=== PATIENT | male | born 1950 | race Caucasian/White ===

== ENCOUNTER → 2024-07-06 08:33 | Outpatient (REF) | payer MEDICARE, OTHER, SELFPAY ==
[2024-07-06 09:04] LABS: % Basophils 0.4 % (0-2); % Eosinophils 0.8 % (0-6); % Immature Granulocytes 0.4 % (0-0.5); % Lymphocytes 22.5 % (20.5-51.1); % Monocytes 9.6 % (1.7-9.3); % Neutrophils 66.3 % (42.2-75.2); Absolute Eosinophils 0.1 10^3/uL (0-0.7); Absolute Lymphocytes 2.4 10^3/uL (1.2-3.4); Absolute Neutrophils 7.1 10^3/uL (1.4-6.5); Hematocrit 44.9 % (39.0-52.0); Hemoglobin 15.9 g/dL (13.0-18.0); Mean Corp Hgb Conc. 35.4 g/dL (33.0-37.0); Mean Corpuscular Hgb 31.4 pg (27.0-31.0); Mean Corpuscular Volume 88.6 fL (80.0-94.0); Mean Platelet Volume 9.8 fL (7.4-10.4); Nucleated Red Blood Cells % 0 % (-); Platelet Count 233 10^3/uL (130-400); Red Blood Cell Count 5.07 10^6/uL (4.70-6.10); Red Cell Dist. Width 12.8 % (11.5-14.5); White Blood Cell Count 10.7 10^3/uL (4.8-10.8)
[2024-07-06 09:15] LABS: INR 2.98; PT 31.3 Sec (11.4-14.6)
[2024-07-06 09:23] LABS: ALT (SGPT) 18 U/L (0-50); AST (SGOT) 21 U/L (17-59); Albumin 4.1 g/dl (3.5-5.0); Alkaline Phosphatase 47 U/L (38-126); Blood Urea Nitrogen 29 mg/dl (9-20); Calcium 9.5 mg/dl (8.4-10.2); Carbon Dioxide 26 mmol/L (22-30); Chloride 104 mmol/L (98-107); Glucose 111 mg/dl (70-99); Magnesium 1.8 mg/dl (1.6-2.3); Potassium 4.3 mmol/L (3.5-5.1); Sodium 139 mmol/L (135-145); Total Bilirubin 0.9 mg/dl (0.2-1.3); eGFR > 60.00
== END ==
LOC: SDSPAT 08:33
PROVIDERS: ATTENDING PHYSICIAN Internal Medicine Cardiovascular Disease; FAMILY PHYSICIAN Family Medicine; OTHER PHYSICIAN Internal Medicine
DX: I48.91 Unspecified atrial fibrillation (principal)
CPT/HCPCS: 36415; 75572; 80053; 83735; 85025; 85610; 86850; 86900; 86901; 93005; Q9967

== ENCOUNTER 2024-07-18 10:28 | Day surgery (SDC) | payer MEDICARE, OTHER, SELFPAY ==
[2024-07-06 08:43] VITALS: BMI 32.7
--- NOTE | 2024-07-06 09:18 | HPS.HSE ---
Family Physician
-
Family Physician: NO INTERVIEW UNKNOWN
Chief Complaint
-
Persistent atrial fibrillation.
History of Present Illness
The patient is a 73-year-old male presenting today for persistent atrial fibrillation. The patient reports a history of periodic palpitations and increased fatigue likely secondary to this diagnosis. He is on current pharmacological
therapy with Metoprolol Succinate. He does report compliance with Warfarin for oral anticoagulation due to a CHADS-VASc of 2. He notes that his current symptoms associated with his atrial fibrillation greatly interfere with his activities of daily
living and overall impact his quality of life. He is interested in pursuing with pulmonary vein isolation for further arrhythmia management. He denies any current complaints today such as chest pain, shortness of breath at rest, nausea, vomiting,
diarrhea, dizziness, cough, sore throat, or fever.
Medical History
Past Medical History
Past Medical History: Reports Other
Additional Past Medical History:
1. Persistent atrial fibrillation, pharmacological therapy with Metoprolol Succinate and oral anticoagulation with Warfarin.
2. Hypertension.
3. PVCs.
4. Obstructive sleep apnea, compliant with CPAP.
5. Colon polyps.
6. Colitis, on Azathioprine.
7. BPH.
8. Obesity, BMI 32.7.
Past Surgical History: Reports Other
Additional Past Surgical History:
1. Cholecystectomy.
2. Multiple colonoscopies.
Social History
Tobacco: Non-smoker
Alcohol: Other (Rare alcohol. )
Personal:
Living: Other (He lives with his Emmanuelle in a 2 story home. )
Family History
Family History: Not pertinent
Allergies / Home Medications
Allergy/Medication List:
Home medications:
1. Amlodipine 5 mg p.o. twice a day.
2. Azathioprine 50 mg p.o. daily.
3. Lisinopril-HCTZ 20-25 mg p.o. daily.
4. Metoprolol Succinate 100 mg p.o. twice a day.
5. Warfarin 7.5 mg p.o. every evening.
Allergies: No known allergies.
Review of Systems
-
A 12 point ROS was completed and negative except as noted: Yes
Physical Exam
Vital Signs
Blood pressure 143/92. Heart rate 85. Respirations 18. Pulse ox 98% on room air.
Height 5 feet, 11 inches. Weight 106.3 kg. BMI 32.7.
Physical Exam
General: Well Developed, Well Nourished and No Apparent Distress
HEENT: NormoCephalic, Moist mucous membranes, Atraumatic and PERRLA
Respiratory: Clear
Cardiac: Irregular Rhythm
GI: Soft, Non Tender, Non Distended and Other (Obese. )
Musculoskeletal: No Edema and Normal Gait & Station
Skin: Warm and Dry
Neuro: AO x 3 and Nonfocal/grossly intact
Laboratory Results
-
DIAGNOSTIC STUDIES as of 07/06/2024: White blood cell count 10.7. Hemoglobin 15.9. Platelet count 233,000. PT 31.3. INR 2.98. Sodium 139. Potassium 4.3. BUN 29. Creatinine 1.0. Glucose 111. Calcium 9.5. Magnesium 1.8. AST 21. ALT 18. Albumin 4.1.
Type and screen A positive.
EKG 07/06/2024: Atrial fibrillation.
Chest CT 07/06/2024: Short segment common vestibule for the left superior and inferior pulmonary veins, fairly commonly seen and considered normal variant. No evidence for left atrial thrombus.
Echocardiogram 06/24/2023: Ejection fraction is 55.7%. Indeterminate left ventricular diastolic function. Mildly dilated left atrium. There is a fat pad vs trivial pericardial effusion. Study was done in atrial fibrillation/atrial flutter.
Impression/Plan
-
IMPRESSION/PLAN:
1. Persistent atrial fibrillation: The patient is in need of pulmonary vein isolation with Dr. Hal Tomas on 07/18/2024. The benefits and risks of the procedure have been explained to the patient. The patient understands these risks and wishes to
proceed. He will not be required to undergo a pre-procedural transesophageal echocardiogram as he has been compliant with his home oral anticoagulation. He is aware to continue his Warfarin up until the night prior to his procedure. He will take no
medications the morning of his ablation.
[2024-07-18] VITALS (10 sets, daily range): BP systolic 106–149; BP diastolic 62–76; BMI 31.2
[2024-07-18 11:08] LABS: INR 2.76; PT 29.1 Sec (11.4-14.6)
--- NOTE | 2024-07-18 14:37 | ITS.CL.ABL ---
Cutter Machine - Ablation
Ablation
Procedure Report:
ELECTROPHYSIOLOGY ABLATION STUDY
DATE:: July 18, 2024���������������������������REFERRING: Dr. Ky uLna
INDICATION: Persistent supraventricular tachycardia in the form of atrial fibrillation.
HISTORY: See H and P.� As above
ANTIARRHYTHMIC DRUG: Metoprolol 100 mg twice daily
PRE-PROCEDURE SUDHIR: No atrial thrombus
PRESENTING RHYTHM: Atrial fibrillation
'TIME-OUT':��called and confirmed.
SEDATION/ANESTHESIA:��provided via the anesthesia department using general anesthesia (LMA).
INTRAVENOUS/ARTERIAL ACCESS:
Right femoral venous - 8Fr
Left femoral venous - 8 Fr, 6 Fr
Ultrasound guidance for bilateral femoral vein access was utilized by me to obtain access with demonstration of normal anatomy
CHADS-VASC Score:
HAS-Bled Score
PROCEDURE:
1.��A decapolar CS catheter was placed within the CS for mapping and pacing.��This was also used as the reference catheter for the 3-D map.
2. The intracardiac ultrasound catheter was positioned in the RA to identify the FO for targeting of transseptal puncture, assist��in identification of the pulmonary vein ostia, monitoring pre and post ablation pulmonary vein flow velocities,
monitoring for 'bubble' formation during RF application as a sign of thermal injury,��and to monitor for pericardial effusion during mapping and ablation procedure.���Left atrial size, LV ejection fraction, and pulmonary vein flows were monitored
pre and post ablation procedure. The other valves were inspected and found to be free of significant regurgitation or stenosis.
3.��Half of the calculated heparin bolus was administered prior to the first transeptal puncture.��Transseptal puncture was performed to diagnose RA and LA pressure so that safety of LA mapping and ablation could be further assessed, and to access
the left atrium and pulmonary veins for mapping and ablation.��This entailed advancing an 16.8 Slovak sheath, RF wire, with dilator into the superior vena cava and withdrawing both (monitoring intracardiac ultrasound, fluoroscopy and tip pressure)
with the tip oriented toward the atrial septum.��The fossa ovalis was engaged (indicated by sudden displacement of the sheath tip as well as tenting of the fossa seen on intracardiac ultrasound).��Left atrial access required a pass with the
Brockenbrough needle extended.��Left atrial catheter position was confirmed by pressure monitoring (RA mean pressure 8 mm Hg and LA mean presure 14 mm Hg), LA saturation (99%),��as well as fluoroscopy.��The sheath was advanced over the dilator and
positioned in the left atrium.���The remainder of the calculated heparin bolus was administered and heparin was
infused to maintain ACT at 300 -350 seconds throughout the case.
4.��RA pacing was performed via the proximal decapolar poles and LA pacing was performed via the distal decapolr poles.
5. A quadrapolar catheter was first positioned at the His position for His Bundle recording which was tagged via the 3-D Navex sytem, and then passed to the RVA for RV pacing and recording.
6. The multipolar catheter and the Penta spine catheter placed each of the LIPV, LSPV, RSPV and the RIPV.��
7.��Next, a 3-D map was created using Navex.���A 3-D reconstructed CT image was compared to the 3-D Navex map to assist in anatomic interpretation, mapping and ablation.��The CT image and the NavX image were fused.
8. A total of 64 lesions were given. At first pass a total of 54 lesions were given in all of basket post to the pulmonary veins and flower post to the roof posterior wall and floor of the left atrium. There is persistent connection at the septal
lisa of the right veins and the roof just outside the left superior pulmonary vein with additional lesions in flower and all of pose to the right superior pulmonary vein and lisa and in flower and basket pose to the roof outside the left
superior pulmonary vein rendering all these regions isolated with entrance and exit block achieved. The patient was converted to sinus rhythm with one 300 J biphasic shock with a 200 J biphasic shock failing to restore sinus rhythm. In sinus
rhythm entrance next block was confirmed in all 4 pulmonary veins, roof floor and posterior wall the left atrium.
9. Normal sinus node and AV node function noted.
TOTAL FLOURO TIME: 28 minutes
TOTAL RF DURATION: 0 minutes
REVERSAL OF HEPARIN: 40 mg of protamine, slow IV administration
COMPLICATIONS:
None
Intracardiac US shows no pericardial effusion post ablation.
SUMMARY:��
Complex left atrial mapping and ablation.
Isolation of all 4 pulmonary veins as well as the roof posterior wall and floor of the left atrium
RECOMMENDATIONS:
1. Ambulate in 4 hours
2. Resume anticoagulation
3.��Consider same-day discharge
4.� Continue metoprolol at current dose
Copy to: Dr. Ky Luna
[2024-07-18] MEDS: ANESTHETIC LOZENGE 1 LOZENGE PO (15:07)
--- NOTE | 2024-07-18 17:20 | W.PN.UPDATE ---
Update Note
Progress Note Update
Pt seen post PFA. Bilat groin sites with figure of 8 closure, no ht/bleeding. Urinating without difficulty. Post EKG NSR 78 w/1st deg AVB as before, no acute changes. Procedure done on uninterrupted warfarin, with INR this morning 2.7. Will continue
tonight at usual time. Followup with Dr. Luna in 2 weeks as scheduled. Home later today if groin site/tele stable.
[2024-07-19 11:56] LABS: ACT-LR - POC > 397 Seconds (116-155)
[2024-07-19 11:56] LABS: ACT-LR - POC > 397 Seconds (116-155)
[2024-07-19 11:56] LABS: ACT-LR - POC > 397 Seconds (116-155)
== END 2024-07-18 19:30 | disposition home or self-care (01) ==
LOC: CATH 10:28
PROVIDERS: ATTENDING PHYSICIAN Internal Medicine Cardiovascular Disease; FAMILY PHYSICIAN Family Medicine; OTHER PHYSICIAN Internal Medicine
DX: I48.19 Other persistent atrial fibrillation (principal); Z79.899 Other long term (current) drug therapy; I10 Essential (primary) hypertension; G47.33 Obstructive sleep apnea (adult) (pediatric); Z86.0100 Personal history of colon polyps, unspecified; N40.0 Benign prostatic hyperplasia without lower urinary tract symptoms; E66.9 Obesity, unspecified; Z68.32 Body mass index [BMI] 32.0-32.9, adult; Z90.49 Acquired absence of other specified parts of digestive tract; Z79.01 Long term (current) use of anticoagulants; I48.92 Unspecified atrial flutter
CPT/HCPCS: C1732; C1894; C1730; C1769; C1892; C1759; 85347; 85610; 86900; 86901; 93005; 93656; 93657; C1733; C1766